=== PATIENT | female | born 1945 | race Caucasian/White ===

== ENCOUNTER → 2016-08-26 | Outpatient (CLI) | payer MEDICARE, OTHER ==
--- NOTE | 2016-08-26 15:20 | KCIC ---
MR CERVICAL SPINE Indication: Neck pain COMPARISON: MRI cervical spine from 02/23/2015 Technique: Sagittal T2, sagittal STIR, sagittal T1, and axial gradient echo imaging was obtained of the cervical spine. FINDINGS: There is straightening of the cervical lordosis. Craniocervical junction is within normal limits. Vertebral body heights are maintained. The cord is normal in caliber and signal abnormality identified. There is degenerative disc height loss at all levels. At C2-3 there is a discussed by complex causing mild mass effect on the cord but no cord signal abnormality. At C3-4 there is very subtle anterolisthesis. There is left uncovertebral hypertrophy causing mild left foraminal stenosis. At C4-C5 there is bilateral vertebral hypertrophy and left facet arthropathy. This results in moderate left foraminal stenosis. Correlate for left C5 radiculopathy symptoms. A disc osteophyte complex abuts the ventral surface of the cord. At C5-C6 there is a disc osteophyte complex which abuts the ventral surface of the cord but does not cause mass effect upon it. There is moderate left foraminal stenosis from uncovertebral hypertrophy. At C6-7 there is mild bilateral foraminal stenosis from facet and uncovertebral hypertrophy. A disc osteophyte complex abuts the ventral surface of the cord but does not cause mass effect upon it. At C7-T1 there is no spinal stenosis. IMPRESSION: Multilevel degenerative disc and facet disease causing varying degrees of central spinal and neural foraminal stenosis. This is most pronounced on the left at C4-C5 where there is moderate foraminal stenosis. Correlate for C5 radiculopathy symptoms. Other degenerative changes per level as above. Electronically signed by: Shad Huff MD (08/26/2016 3:17 PM)
== END | disposition home or self-care (01) ==
LOC: KCIC MRI 14:10
PROVIDERS: ATTEND Neurological Surgery
DX: M48.02 Spinal stenosis, cervical region (principal); M50.30 Other cervical disc degeneration, unspecified cervical region; M40.292 Other kyphosis, cervical region; M12.88 Other specific arthropathies, not elsewhere classified, other specified site
CPT/HCPCS: 72141

== ENCOUNTER → 2021-01-19 | Outpatient (CLI) | payer MEDICARE, OTHER ==
[2020-08-25 11:00] VITALS: BP 134/73
[~2021-01-19] MED LIST: ATOR10TA PO; CARV25TA PO; CEVI30CA PO; CYCL15CA20 PO; DOCU-109 PO; ESOM20CA PO; GUAI600T47 PO; IPRA3AMP29 NEB; LEFL10TA19 PO; LEVO-101 PO; LEVO500T9 PO; LOSA100T14 PO; NIFE30TA15 PO; OXYC10TA46 PO
--- NOTE | 2021-01-19 12:10 | KCIC ---
INDICATION: Screening for osteopenia/osteoporosis. Reason: AGE RELATED OSTEOPOROSIS / Spl. Instructi ons: / History: Postmenopausal evaluation. COMPARISON: None. TECHNIQUE: Bone densitometry was performed through the lumbar spine and proximal femur. IMPRESSION: Lumbar Spine: BMD: 1.1 T-Score: 0.7 Range: Normal Proximal Femur: BMD: 0.74 T-Score: -1.6 Range: Osteopenic World [employer] Organization Criteria for Bone Density: T-Score: > -1.0: Normal Range < -1.0 to -2.5: Osteopenic Range < -2.5: Osteoporotic Range Electronically signed by: Gilmer Mendes MD (01/19/2021 12:08 PM) [id number]
== END ==
LOC: KCIC DEXA 10:10
PROVIDERS: ATTEND Internal Medicine Rheumatology
DX: M81.0 Age-related osteoporosis without current pathological fracture (principal)
CPT/HCPCS: 77080